=== PATIENT | male | born 1945 | race African-American/Black ===

== ENCOUNTER → 2016-03-14 | Outpatient (CLI) | payer OTHER ==
--- NOTE | 2016-03-14 17:04 | US ---
Limited Retroperitoneal Ultrasound INDICATION: Diabetes. Screening for aneurysm. TECHNIQUE: Retroperitoneal aortic ultrasound is performed. FINDINGS: Aorta proximally measures 3 x 2.9 cm, mid measures 2.4 x 2.3 cm, distal measures 2.3 x 2.2 cm. Iliac vessels measure 1.7 cm on the right and 1.6 cm on the left. No atherosclerosis. No dissection or ulceration or periaortic fluid collection. IMPRESSION: Measurements at upper limits of normal as above.
== END ==
LOC: FIMAGING 08:55
PROVIDERS: ATTEND Family Medicine
DX: Z13.6 Encounter for screening for cardiovascular disorders (principal); E11.69 Type 2 diabetes mellitus with other specified complication

== ENCOUNTER 2018-02-15 12:14 | Emergency (ER) | payer OTHER ==
--- NOTE | 2018-02-15 12:40 | EDPHY ---
H & P Stated Complaint: 1yr Hx L calf pn, exac x4D s knee injury, denies other s/s.No recent stasis Time Seen by Provider: 02/15/18 12:30 HPI/ROS: CHIEF COMPLAINT: Left calf pain HISTORY OF PRESENT ILLNESS: The patient presents to the ED for evaluation of left calf pain which is worsened over the past 4 days. The patient does have some chronic lower extremity pain attributed to arthritis of the knee. The patient reportedly has been increasing his activity level recently. He does report some associated anterior knee pain which is worse with ambulating on stairs. The patient denies any acute numbness or weakness. The patient denies chest pain or shortness of breath. The patient denies any prior history of PE or DVT. The patient does not smoke. REVIEW OF SYSTEMS: A comprehensive 10 point review of systems is otherwise negative aside from elements mentioned in the history of present illness. Source: Patient Exam Limitations: No limitations - Personal History Current Tetanus/Diphtheria Vaccine: Yes - Medical/Surgical History Hx Asthma: No Hx Chronic Respiratory Disease: No Hx Diabetes: No Hx Cardiac Disease: No Hx Renal Disease: No Hx Cirrhosis: No Hx Alcoholism: No Hx HIV/AIDS: No Hx Splenectomy or Spleen Trauma: No Other PMH: knee meniscus Sx, diet controlled DM. - Social History Smoking Status: Never smoked - Physical Exam Exam: General Appearance: Alert, no distress Eyes: Pupils equal and round no pallor or injection ENT, Mouth: Mucous membranes moist Respiratory: There are no retractions, lungs are clear to auscultation Cardiovascular: Regular rate and rhythm Gastrointestinal: Abdomen is soft and nontender, no masses, bowel sounds normal Neurological: Normal motor function noted bilateral lower extremities, normal sensory exam bilateral lower extremities Skin: Warm and dry, no rashes Musculoskeletal: Mild tenderness to palpation left anterior joint line, no significant joint effusion Extremities: Mild left calf tenderness, normal range of motion, no asymmetry appreciated Constitutional: Initial Vital Signs Temperature (C) 36.8 C 02/15/18 12:30 Heart Rate 58 L 02/15/18 12:30 Respiratory Rate 16 02/15/18 12:30 Blood Pressure 126/62 H 02/15/18 12:30 O2 Sat (%) 98 02/15/18 12:30 O2 Delivery Mode Room Air Allergies/Adverse Reactions: No Known Allergies Allergy (Unverified 02/15/18 12:28) Home Medications: Medication Instructions Recorded Lisinopril 02/15/18 Simvastatin 02/15/18 Medical Decision Making - Diagnostics Imaging Results: Imaging Impressions Extremity Venous Study 02/15/18 12:30 Impression: No deep venous thrombosis left leg. Findings and recommendations discussed with Emergency Department physician, Noé Felder at 13:20 hour, 02/15/2018. Final report concurs with initial preliminary interpretation. ED Course/Re-evaluation: The patient presents the ED left calf pain in the setting recent overuse. The patient does have a prior history of a meniscal injury involving the knee. He is having some mild intra-articular discomfort without clinical evidence of a septic arthritis. The patient has no evidence of an obvious large effusion on exam. Given his calf tenderness he was taken for an ultrasound which demonstrates no evidence of a DVT. The patient will be advised to use NSAIDs as needed for management of his symptoms. Patient should follow up with Orthopedic surgery for evaluation management of any ongoing knee discomfort. The patient should have a repeat ultrasound in 2 weeks for any ongoing symptoms of calf pain. Differential Diagnosis: Differential diagnosis considered includes Moss cyst, cellulitis, DVT, osteoarthritis Departure - Departure Disposition: Home, Routine, Self-Care Clinical Impression: Pain of left calf, Strain of knee and leg, left Condition: Good Instructions: Knee Pain (ED) Additional Instructions: 1. Take Ibuprofen or Motrin 600 mg by mouth three times a day. 2. Repeat ultrasound in 2 weeks for any ongoing symptoms to ensure a clot has not developed. 3. Please schedule a follow-up appointment with Dr. Lieberman for recheck. He May 1 she to see an orthopedic surgeon. Referrals: ZAID LIEBERMAN [Medical Doctor] - As per Instructions
[2018-02-15 13:40] VITALS: BP 122/69
== END 2018-02-15 13:38 | disposition home or self-care (01) ==
DX: S86.812A Strain of other muscle(s) and tendon(s) at lower leg level, left leg, initial encounter (principal); E11.9 Type 2 diabetes mellitus without complications; X58.XXXA Exposure to other specified factors, initial encounter; Y92.9 Unspecified place or not applicable; Y93.9 Activity, unspecified; Y99.9 Unspecified external cause status